=== PATIENT | female | born 1985 | race Caucasian/White ===

== ENCOUNTER 2018-11-13 09:27 | Inpatient (IN) | payer OTHER ==
[2018-11-13 10:23] LABS: Hematocrit 36 % (35-47); Hemoglobin 12.4 g/dl (12.0-16.0); Mean Corpuscular HGB Conc 35 g/dl (31-36); Mean Corpuscular Hemoglobin 33 pg (27-31); Mean Corpuscular Volume 94 fL (80-97); Mean Platelet Volume 8.3 fL (7.4-10.4); Platelet Count 292 10^3/ul (150-450); Red Cell Distribution Width 13 % (10.5-15); White Blood Count 10.9 10^3/ul (3.5-10.8)
[2018-11-13 10:28] LABS: Urine Appearance Cloudy; Urine Bacteria 1+ (Absent); Urine Bilirubin Negative (Negative); Urine Blood 1+ (Negative); Urine Color Yellow; Urine Glucose Negative (Negative); Urine Ketones Negative (Negative); Urine Nitrite Negative (Negative); Urine Protein Negative (Negative); Urine Red Blood Cell 1+(3-5/hpf) (Absent); Urine Specific Gravity 1.004 (1.010-1.030); Urine Squamous Epithelial Cell Present (Absent); Urine Urobilinogen Negative (Negative); Urine White Blood Cell Trace(0-5/hpf) (Absent)
[2018-11-13 10:45] LABS: ALT 12 U/L (7-52); AST 14 U/L (13-39); Albumin 3.6 g/dL (3.2-5.2); Albumin/Globulin Ratio 1.1 (1-3); Alkaline Phosphatase 99 U/L (34-104); Anion Gap 10 mmol/L (2-11); BUN/Creatinine Ratio 9.6 (8-20); Blood Urea Nitrogen 5 mg/dL (6-24); CO2 Carbon Dioxide 19 mmol/L (22-32); Calcium 9.4 mg/dL (8.6-10.3); Chloride 107 mmol/L (101-111); EGFR African American 163.3 (>60); Globulin 3.2 g/dL (2-4); Glucose 94 mg/dL (70-100); Potassium 3.4 mmol/L (3.5-5.0); Sodium 136 mmol/L (135-145); Total Protein 6.8 g/dL (6.4-8.9)
[2018-11-13] MEDS ORDERED: Azithromycin TAB* 250 MG PO ONE (11:00)
[2018-11-13] MEDS: Betamethasone INJ* 6 MG/ML 5 ML VIAL (30 MG) IM SCH (11:22)
[2018-11-13] MEDS: NS 0.9% IVPB SCH ×3 (11:32→23:02)
[2018-11-13] MEDS: AMPICILLIN IVPB SCH ×3 (11:32→23:02)
--- NOTE | 2018-11-13 17:20 | HP ---
General Information - Reason for Visit Pt presents from OB office at 30+1 with gross SROM this AM. Fluid clear, large amt, still having some leakage. Also has noticed some cramps, but nothing very painful or regular. has been uncomplicated other than diet controlled GDM and h/o myomectomy. Pt is planning primary C/S due to the myomectomy. - General Information Maternal Age: 33 Grav: 4 Para: 0 SAB: 0 IEA: 0 Estimated Due Date: 01/21/19 Gestational Age in Weeks/Days: 30+1 Maternal Blood Type and Rh: B Positive - Results this Serology/RPR Result: Non-Reactive Rubella Result: Immune HBsAg Result: Negative HIV Result: Negative Past Medical History Delivery History: See Records Pertinent Past Medical History: See Records Pertinent Past Surgical History: See Records - myomectomy, D&C - Antepartal Records Antepartal Records: Reviewed, Complicated by: - GDM, h/o myomectomy Review of Systems Constitutional: Comfortable CV Complaint: No Respiratory: Shortness of Breath: No Gastrointestinal: No Nausea/Vomiting Genitourinary: Leaking Fluid, No Dysuria, No Bleeding Musculoskeletal: Contractions - , mild cramps Movement: Normal Exam Allergies/Adverse Reactions: Allergies Latex, Natural Rubber Allergy (Mild, Verified 11/13/18 13:54) Itching can use latex gloves at work but is reactive after dental cleanings Lab Values - Entire Visit: Laboratory Tests 11/13/18 11/13/18 11/13/18 10:00 10:00 10:00 WBC 10.9 H RBC 3.80 L Hgb 12.4 Hct 36 MCV 94 MCH 33 H MCHC 35 RDW 13 Plt Count 292 MPV 8.3 Sodium 136 Potassium 3.4 L Chloride 107 Carbon Dioxide 19 L Anion Gap 10 BUN 5 L Creatinine 0.52 Est GFR ( Amer) 163.3 Est GFR (Non-Af Amer) 135.0 BUN/Creatinine Ratio 9.6 Glucose 94 Calcium 9.4 Total Bilirubin 0.30 AST 14 ALT 12 Alkaline Phosphatase 99 Total Protein 6.8 Albumin 3.6 Globulin 3.2 Albumin/Globulin Ratio 1.1 Urine Color Yellow Urine Appearance Cloudy Urine pH 6.0 Ur Specific [place] 1.004 L Urine Protein Negative Urine Ketones Negative Urine Blood 1+ A Urine Nitrate Negative Urine Bilirubin Negative Urine Urobilinogen Negative Ur Leukocyte Esterase Negative Urine WBC (Auto) Trace(0-5/hpf) Urine RBC (Auto) 1+(3-5/hpf) A Ur Squamous Epith Cells Present A Urine Bacteria 1+ A Urine Glucose Negative Vag Amniotic Fld Detect Positive Blood Type Antibody Screen 11/13/18 10:00 WBC RBC Hgb Hct MCV MCH MCHC RDW Plt Count MPV Sodium Potassium Chloride Carbon Dioxide Anion Gap BUN Creatinine Est GFR ( Amer) Est GFR (Non-Af Amer) BUN/Creatinine Ratio Glucose Calcium Total Bilirubin AST ALT Alkaline Phosphatase Total Protein Albumin Globulin Albumin/Globulin Ratio Urine Color Urine Appearance Urine pH Ur Specific [place] Urine Protein Urine Ketones Urine Blood Urine Nitrate Urine Bilirubin Urine Urobilinogen Ur Leukocyte Esterase Urine WBC (Auto) Urine RBC (Auto) Ur Squamous Epith Cells Urine Bacteria Urine Glucose Vag Amniotic Fld Detect Blood Type B Positive Antibody Screen Negative - Measurements Height: 5 ft 2 in Weight: 148 lb Weight in lbs: 148.170352 Body Mass Index (BMI): 27.1 - Exam Breast: Breast Exam Deferred Extremities: No Edema Heart: Normal Rhythm/Heart Sounds HEENT: No Significant Findings Lungs: Clear Bilaterally Rectal: Rectal Exam Deferred - Abdominal Exam Abdomen Exam: Non-Tender, Fundal Height Consistent with Dates - Ultrasound/Biophysical Profile Ultrasound Status: Radiology Department Full Exam - fetus 1810g, appropriate size, transverse presentation, anterior placenta, ERICH 8.5, cervix 2.8cm long with funneling Targeted Exam Findings Estimated Weight: approx 1800g Presenting Part: Transverse Membrane Status: Leaking Amniotic Fluid Evaluation: Gross Rupture, Positive ROM Plus EFM Findings - External Monitor Findings Baseline Heart Rate: 140 External Monitor Findings: Accelerations Present, No Pattern of Variable or Late Decelerations, Variability Moderate, Baseline Stable Contractions: Irregular, Mild - feel like mild cramps Assessment/Plan - Assessment 33yo at 30+1 wks EGA with gross SROM, very reassuring status and normal size today - Obstetrical Risk Factors Obstetrical Risk Factors: GBS Unknown - Plan Plan: Antibiotic Prophylaxis, Steroids Plan Comment: Admit to antepartum service. Betamethasone Q24 hrs x2. Ampicillin and azithromycin. Start Amoxicillin in 48 hours. Plan delivery by C/S due to h/o myomectomy at 34 weeks. Delivery sooner for indications, evidence of labor, or any concern for infection. Discussed at length, pt understands and agrees with plan. - Date/Time of Admission Date of Admission: 11/13/18 Time of Admission: 12:30
[2018-11-13] MEDS: Calcium Carbonate CHEW TAB* 500 MG (TUMS) PO PRN (23:03)
[2018-11-14] MEDS: NS 0.9% IVPB SCH ×4 (05:52→23:01)
[2018-11-14] MEDS: AMPICILLIN IVPB SCH ×4 (05:52→23:01)
--- NOTE | 2018-11-14 09:24 | PN ---
Medicine Progress Note - Date of Service Date of Service: 11/14/18 - Subjective Subjective: Patient is 30+ weeks admited with PPROM, complicated by GDMA1 and prior myomectomy. She was admitted yesterday, is on prophylactic antibiotics, steroid injection to promote lung maturity x 1, second dose pending. Patient is comfortable denies, fever/chills, abdominal pain/ contractions, vaginal bleeding and admits to movement. - Objective Objective: Vital Signs 11/14/18 08:06 Temperature 99.0 F Pulse Rate 116 Respiratory 17 Rate Blood Pressure 104/56 (mmHg) O2 Sat by Pulse 99 Oximetry Non-stress test this am is reactive cat 1 Current Medications Betamethasone Acet/Betameth SodPhos (Celestone*) 12 mg IM Q24H KELSI Stop: 11/14/18 11:01 Last Admin: 11/13/18 11:22 Dose: 12 dose Calcium Carbonate (Tums*) 500 mg PO Q6H PRN PRN Reason: HEARTBURN Last Admin: 11/13/18 23:03 Dose: 500 mg Ampicillin Sodium 2 gm/ Sodium (Chloride) 100 mls @ 200 mls/hr IVPB Q6H KELSI Stop: 11/15/18 05:29 Last Admin: 11/14/18 05:52 Dose: 200 mls/hr Intake & Output 11/12/18 11/13/18 11/14/18 11/15/18 06:59 06:59 06:59 06:59 Weight 148 lb Intake and Output Start: 11/13/18 09: 34 Freq: Status: Active Protocol: Created 11/13/18 09:34 System (Rec: 11/13/18 09:34 System [id number]) Last Finger Stick Glucose Documented by Nursin General:AAOx3 in no distress Lungs:CTA b/l Cardiovascular:RRR no abnormal sounds or rythm Abdomen:Gravid soft, not tender, palpable movement, normal bowel sounds Extremities: N/T b/l - Labs Labs: Laboratory Results - last 24 hr 11/13/18 11/13/18 11/13/18 10:00 10:00 10:00 WBC 10.9 H RBC 3.80 L Hgb 12.4 Hct 36 MCV 94 MCH 33 H MCHC 35 RDW 13 Plt Count 292 MPV 8.3 Sodium 136 Potassium 3.4 L Chloride 107 Carbon Dioxide 19 L Anion Gap 10 BUN 5 L Creatinine 0.52 Est GFR ( Amer) 163.3 Est GFR (Non-Af Amer) 135.0 BUN/Creatinine Ratio 9.6 Glucose 94 POC Glucose (mg/dL) Calcium 9.4 Total Bilirubin 0.30 AST 14 ALT 12 Alkaline Phosphatase 99 Total Protein 6.8 Albumin 3.6 Globulin 3.2 Albumin/Globulin Ratio 1.1 Urine Color Yellow Urine Appearance Cloudy Urine pH 6.0 Ur Specific [place] 1.004 L Urine Protein Negative Urine Ketones Negative Urine Blood 1+ A Urine Nitrate Negative Urine Bilirubin Negative Urine Urobilinogen Negative Ur Leukocyte Esterase Negative Urine WBC (Auto) Trace(0-5/hpf) Urine RBC (Auto) 1+(3-5/hpf) A Ur Squamous Epith Cells Present A Urine Bacteria 1+ A Urine Glucose Negative Vag Amniotic Fld Detect Positive Blood Type Antibody Screen 11/13/18 11/13/18 11/14/18 10:00 21:09 06:02 WBC RBC Hgb Hct MCV MCH MCHC RDW Plt Count MPV Sodium Potassium Chloride Carbon Dioxide Anion Gap BUN Creatinine Est GFR ( Amer) Est GFR (Non-Af Amer) BUN/Creatinine Ratio Glucose POC Glucose (mg/dL) 110 H 98 Calcium Total Bilirubin AST ALT Alkaline Phosphatase Total Protein Albumin Globulin Albumin/Globulin Ratio Urine Color Urine Appearance Urine pH Ur Specific [place] Urine Protein Urine Ketones Urine Blood Urine Nitrate Urine Bilirubin Urine Urobilinogen Ur Leukocyte Esterase Urine WBC (Auto) Urine RBC (Auto) Ur Squamous Epith Cells Urine Bacteria Urine Glucose Vag Amniotic Fld Detect Blood Type B Positive Antibody Screen Negative Microbiology 11/13/18 10:00 Urine Urine Culture - Final No Growth (<1,000 CFU/mL) - Assessment Assessment: HECTOR SANDERS is a 33 year old F. Patient's diagnosis is . - Plan Plan: Plan. Continue current care, monitoring for s/sx of pre-term labor or chorioamnionitis, monitoring with nonstress tests, Nutrition consult pending for appropriate diet and nutritional needs.
[2018-11-14] MEDS: Betamethasone INJ* 6 MG/ML 5 ML VIAL (30 MG) IM SCH (11:00)
[2018-11-14] MEDS: Calcium Carbonate CHEW TAB* 500 MG (TUMS) PO PRN (15:00)
[2018-11-15] MEDS: NS 0.9% IVPB SCH (05:05)
[2018-11-15] MEDS: AMPICILLIN IVPB SCH (05:05)
--- NOTE | 2018-11-15 11:11 | PN ---
Progress Note - Progress Note Date of Service: 11/15/18 Note: s: Leaking lots of clear fluid today but no vaginal bleeding. +FM. Feeling well in general. VSS. FS mostly normal, just a few elevated yesterday (on steroids). NST: Appropriate for GA Exam: Gen: NAD, sitting up in bed Abd: soft, NT, gravid Ext: NT, no edema A: Pt is a @ 30.3wks with PPROM. status reassuring. No s/s of labor. S/p betamethasone and IV abx x48hrs. Prior myomectomy. A1GDM P: Switched to Amoxicillin 875 po BID Had nutrition consult, monitoring fs QID, consistent carb diet, encourage ambulation Will plan for PCS @34wks due to h/o myomectomy (or if s/s of labor)
[2018-11-15] MEDS ORDERED: Amoxicillin/Clavulanate TAB* 875 MG PO SCH (12:00)
[2018-11-15] MEDS: Amoxicillin/Clavulanate TAB* 875 MG PO SCH (20:39)
[2018-11-15] MEDS ORDERED: Magnesium CITRATE* 300 ML BTL PO PRN (21:00)
[2018-11-16] MEDS: Amoxicillin/Clavulanate TAB* 875 MG PO SCH (09:36)
--- NOTE | 2018-11-16 09:52 | PN ---
Progress Note - Progress Note Date of Service: 11/16/18 SOAP: Subjective: Pt without complaint today other than some persistent heartburn despite TUMs. Has not tried zantac or similar. Active FMs, no VB, slow leaking, no abd pain or F/C. Objective: VS normal, afebrile BGs almost all normal, aristides over past 24 hrs (since stopping steroids) Abd soft, nontender, gravid NST reactive, no decels, mod melissa. [place]: occ rare ctx Assessment: 30+4 wks with PPROM, no e/o infection or labor. Reassuring status. Incr heartburn. Amoxicillin day #2 of 5 Plan: Continue supportive care, BID NST. Plan delivery by C/S at 34 wks, sooner if e/o infection/labor/NRFHT. Pepcid BID rx
[2018-11-16] MEDS: Famotidine TAB* 20 MG PO SCH ×2 (10:44→21:01)
[2018-11-16] MEDS: Amoxicillin PO (*) 875 MG TAB PO SCH (20:59)
[2018-11-17] MEDS: Famotidine TAB* 20 MG PO SCH ×2 (09:03→21:31)
[2018-11-17] MEDS: Amoxicillin PO (*) 875 MG TAB PO SCH ×2 (09:03→21:31)
--- NOTE | 2018-11-17 15:54 | PN ---
Progress Note - Progress Note Date of Service: 11/17/18 Note: pt with pprom at 30 + weeks feels well today. bpp at bedside shows + fbm, + tone, + gross movements, decreased fluid. reactive nst 8/10 bpp reassuring testing . questions answered Burton Dillon MD
[2018-11-18] MEDS: Amoxicillin PO (*) 875 MG TAB PO SCH ×2 (09:05→21:27)
[2018-11-18] MEDS: Famotidine TAB* 20 MG PO SCH ×2 (09:05→21:28)
--- NOTE | 2018-11-18 21:27 | PN ---
Progress Note - Progress Note Date of Service: 11/18/18 Note: Date of Service: 11/18/18 SOAP: Subjective: Pt without complaint today. Active FMs, no VB, continued slow leaking, no abd pain or F/C. Objective: VS normal, afebrile BGs all normal Abd soft, nontender, gravid NST reactive, no decels, mod melissa. [place]: occ rare ctx Assessment: 30+6 wks with PPROM, no e/o infection or labor. Reassuring status. Incr heartburn. Amoxicillin day #4 of 5 Plan: Continue supportive care, BID NST. Plan delivery by C/S at 34 wks, sooner if e/o infection/labor/NRFHT.
[2018-11-19] MEDS: Amoxicillin PO (*) 875 MG TAB PO SCH ×2 (09:07→21:36)
[2018-11-19] MEDS: Famotidine TAB* 20 MG PO SCH ×2 (09:07→21:36)
--- NOTE | 2018-11-19 15:45 | PN ---
Progress Note - Progress Note Date of Service: 11/19/18 Note: SOAP: Subjective: Pt without complaints today. Active FMs, no VB, continued slow leaking, no abd pain or F/C. Pt in good spirits. Objective: VS normal, afebrile BGs all normal on regular diet Abd soft, nontender, gravid NST reactive, no decels, mod melissa. [place]: no ctx Assessment: 31+0 wks with PPROM, no e/o infection or labor. Very reassuring status. Amoxicillin day #5 of 5, d/c tonight Plan: Continue supportive care, BID NST. Plan delivery by C/S at 34 wks, sooner if e/o infection/labor/NRFHT.
--- NOTE | 2018-11-20 10:00 | PN ---
Progress Note - Progress Note Date of Service: 11/20/18 SOAP: Subjective: [Pt doing ok] Objective: [VSS Afeb] Uterus: NT/ no contractions Ext : NT NST : + accels/ neg decel/ moderate variability / no contractions Assessment: [Pt 33 31 weeks with PProm/ pt is s/p full course of abx and steroids ] Plan: [] Plan on recheck BPP. Plan on induction at 34 weeks or sooner if indicated.
[2018-11-20] MEDS: Famotidine TAB* 20 MG PO SCH (21:00)
[2018-11-21] MEDS: Famotidine TAB* 20 MG PO SCH ×2 (09:27→21:13)
--- NOTE | 2018-11-21 11:49 | PN ---
Progress Note - Progress Note Date of Service: 11/21/18 SOAP: Subjective: [Patient denies abdominal pain, contractions, admits to movement. Denies vaginal bleeding.] Objective: [ Vital Signs Temp Pulse Resp BP Pulse Ox 98.2 F 99 18 130/76 98 11/21/18 09:28 11/21/18 10:35 11/21/18 10:35 11/21/18 10:35 11/17/18 09:01 Laboratory Results - last 24 hr 11/20/18 11/20/18 11/21/18 14:25 20:59 06:26 POC Glucose (mg/dL) 84 95 64 L 11/21/18 10:33 POC Glucose (mg/dL) 68 L Lungs CTA b/l CV RRR Abdomen soft, not tender, not distended, normal bowel sounds, palpable movement.] Assessment: [Patient with PPROM at 31weeks, s/p antibiotic prophylaxis, steroids, GBS negative, Urine culture negative. also complicvated by Gestational diabetes A1 and prior Uterine Myomectomy precluding induction of labor.] Plan: [1. PPROM monitor for s/sx of chorioamnionitis or pre-term labor. Check daily NST, CBC, blood type/screen and regular vital signs. 2. Gestational diabetes well controlled with diet. 3. Plan delivery at 34 weeks EGA, Section to be done 12/12/18 as discussed with patient unless patient develops chorio or pre term labor.]
[2018-11-21 12:20] LABS: Hematocrit 35 % (35-47); Hemoglobin 12.1 g/dl (12.0-16.0); Mean Corpuscular HGB Conc 35 g/dl (31-36); Mean Corpuscular Hemoglobin 33 pg (27-31); Mean Corpuscular Volume 95 fL (80-97); Mean Platelet Volume 8.4 fL (7.4-10.4); Platelet Count 307 10^3/ul (150-450); Red Blood Count 3.66 10^6/ul (4.00-5.40); Red Cell Distribution Width 13 % (10.5-15); White Blood Count 12.2 10^3/ul (3.5-10.8)
[2018-11-21 13:01] LABS: ABS Basophils 0 10^3/ul (0-0.2); ABS Eosinophils 0.1 10^3/ul (0-0.6); ABS Lymphocytes 1.6 10^3/ul (1.0-4.8); ABS Monocytes 0.9 10^3/ul (0-0.8); ABS Neutrophils 9.5 10^3/ul (1.5-7.7)
[2018-11-21 13:10] LABS: Immature Granulocytes 5 % (0-9); Lymphocytes % 12 %; Metamyelocytes % 1 % (0-2); Monocytes % 11 %; Myelocytes % 4 % (0-1); Neutrophil % 70 %
[2018-11-21 13:22] LABS: ABS Neutrophils 9.2 10^3/ul (1.5-7.7)
[2018-11-21 13:24] LABS: ABS Eosinophils 0.2 10^3/ul (0-0.6)
--- NOTE | 2018-11-22 07:35 | PN ---
Progress Note - Progress Note Date of Service: 11/22/18 SOAP: Subjective: []pt sans complaints. gfm Objective: []vss afebrile abdomen soft nontender ext notender glucose 71 fasting nst reactive Assessment: []31 week 4 days pprom Plan: []continue observation
[2018-11-22] MEDS: Famotidine TAB* 20 MG PO SCH ×2 (09:00→20:50)
[2018-11-23] MEDS: Famotidine TAB* 20 MG PO SCH ×2 (08:55→20:03)
--- NOTE | 2018-11-23 16:33 | PN ---
Progress Note - Progress Note Date of Service: 11/23/18 Note: SOAP: Subjective: Pt without complaints today, still doing well. Active FMs, no VB, continued slow leaking, no abd pain or F/C. Objective: VS normal, afebrile BGs all normal on regular diet Abd soft, nontender, gravid NST this AM reactive, no decels, mod melissa. [place]: no ctx Bedside BPP: Transverse presentation Fluid 5x2cm pocket, +movement, +tone, only a few seconds of breathing observed. Assessment: 31+4 wks with PPROM, no e/o infection or labor. Reassuring status. BPP on Tuesday read as 6/8 although technically 4/8 with low fluid and absent breathing. Today, fluid is technically adequate, and breathing not seen for a full 30 seconds. With pt feeling active FMs and reactive NST, I think it is reasonable to repeat BPP again tomorrow. Plan: Continue supportive care, BID NST. BPP tomorrow. Plan delivery by C/S at 34 wks, sooner if e/o infection/labor/NRFHT. Scheduled for 12/12. We discussed that pt can probably be permitted to walk on the premises if she is accompanied by an available [facility] [place] employee on Tuesday when the weather is expected to be warmer.
[2018-11-24] MEDS: Famotidine TAB* 20 MG PO SCH ×2 (09:05→21:14)
[2018-11-24 12:48] LABS: Hematocrit 33 % (35-47); Hemoglobin 11.5 g/dl (12.0-16.0); Mean Corpuscular HGB Conc 35 g/dl (31-36); Mean Corpuscular Hemoglobin 33 pg (27-31); Mean Corpuscular Volume 95 fL (80-97); Mean Platelet Volume 8.5 fL (7.4-10.4); Platelet Count 288 10^3/ul (150-450); Red Blood Count 3.45 10^6/ul (4.00-5.40); Red Cell Distribution Width 13 % (10.5-15); White Blood Count 11.1 10^3/ul (3.5-10.8)
[2018-11-24 13:30] LABS: Immature Granulocytes 2 % (0-9); Lymphocytes % 16 %; Metamyelocytes % 1 % (0-2); Monocytes % 9 %; Myelocytes % 1 % (0-1); Neutrophil % 72 %
[2018-11-24 13:34] LABS: ABS Basophils 0.11 10^3/ul (0-0.2); ABS Neutrophils 8.2 10^3/ul (1.5-7.7)
--- NOTE | 2018-11-24 14:57 | PN ---
Progress Note - Progress Note Date of Service: 11/24/18 Note: S: Pt doing well though had some increased cramping and back discomfort this am. It improved some s/p a warm shower but her back is still achy. No bleeding. Still leaking some clear fluid. Good FM. AVSS FS: All wnl NST: 145bpm, reactive [place]: no ctxs Abd: soft, gravid, NT Ext: no edema Bedside sono: 3.5x4cm fluid pocket, + movement and 30 sec of breathing. Transverse presentation. BPP 06/28 Assessment: @31.5wks GA with PPROM s/p abx ppx and steroids. No e/o infection or labor. status reassuring. A1GDM Plan: Continue to monitor FS, NST. CS at 34wks or if labor or s/s of infxn
[2018-11-25] MEDS: Famotidine TAB* 20 MG PO SCH ×2 (08:11→20:38)
--- NOTE | 2018-11-25 11:40 | PN ---
Progress Note - Progress Note Date of Service: 11/25/18 Note: 33 yo at 31 weeks with pprom nst reactive afebile bpp was normal yesterday glucose in good control continue observation
--- NOTE | 2018-11-26 06:52 | PN ---
Progress Note - Progress Note Date of Service: 11/26/18 SOAP: Subjective: [pt sans complaints . continues to leak some Objective: [vss afebrile abdomen soft nontender] nst reactive Assessment: [32 weeks 0 days pprom] Plan: [continue observation]
[2018-11-26] MEDS: Famotidine TAB* 20 MG PO SCH ×2 (08:39→21:01)
[2018-11-26 18:02] LABS: Hematocrit 34 % (35-47); Hemoglobin 11.8 g/dl (12.0-16.0); Mean Corpuscular HGB Conc 35 g/dl (31-36); Mean Corpuscular Hemoglobin 33 pg (27-31); Mean Corpuscular Volume 95 fL (80-97); Mean Platelet Volume 8.2 fL (7.4-10.4); Platelet Count 281 10^3/ul (150-450); Red Blood Count 3.59 10^6/ul (4.00-5.40); Red Cell Distribution Width 13 % (10.5-15); White Blood Count 11.5 10^3/ul (3.5-10.8)
[2018-11-26 18:17] LABS: Urine Appearance Cloudy; Urine Bilirubin Negative (Negative); Urine Blood Negative (Negative); Urine Color Yellow; Urine Glucose Negative (Negative); Urine Ketones Trace (Negative); Urine Nitrite Negative (Negative); Urine Protein Negative (Negative); Urine Specific Gravity 1.014 (1.010-1.030); Urine Urobilinogen Negative (Negative)
[2018-11-26 18:39] LABS: ABS Basophils 0.1 10^3/ul (0-0.2); ABS Eosinophils 0.1 10^3/ul (0-0.6); ABS Lymphocytes 1.6 10^3/ul (1.0-4.8); ABS Monocytes 1.2 10^3/ul (0-0.8); ABS Neutrophils 8.5 10^3/ul (1.5-7.7); ABS Nucleated RBC 0 10^3/ul; Eosinophil % 1.2 %; Nucleated Red Blood Cells % 0
[2018-11-27] MEDS: Famotidine TAB* 20 MG PO SCH (08:26)
--- NOTE | 2018-11-27 16:44 | PN ---
Progress Note - Progress Note Date of Service: 11/27/18 SOAP: Subjective: [Pt doing ok/ would like to go outside] Objective: [VSS afeb] Uterus : NT, no contractions BPP: 6/8 Reactive NST FHT 140 reactive NST/ no contractions/ mod variability Assessment: [Pt 33 yo at 32 1/7 weeks with pprom] Plan: [Pt with decrease in ERICH/ will recheck in 24 to 48 hours. Pt doing well overall with plans of delivery at 34 weeks with primary delivery given prior myomectomy.]
[2018-11-28] MEDS: Famotidine TAB* 20 MG PO SCH ×3 (07:08→20:30)
--- NOTE | 2018-11-28 08:11 | PN ---
Progress Note - Progress Note Date of Service: 11/28/18 SOAP: Subjective: [ at 32 2/7 weeks EGA with PPROM admitted on 11/13/18. Patient is comfortable has no complaints, denies vaginal bleeding, fever, chills, malaise, abdominal pain or contractions. She admits to movement.] Objective: [ Laboratory Last Values WBC 11.5 10^3/ul (3.5-10.8) H 11/26/18 17:55 RBC 3.59 10^6/ul (4.00-5.40) L 11/26/18 17:55 Hgb 11.8 g/dl (12.0-16.0) L 11/26/18 17:55 Hct 34 % (35-47) L 11/26/18 17:55 MCV 95 fL (80-97) 11/26/18 17:55 MCH 33 pg (27-31) H 11/26/18 17:55 MCHC 35 g/dl (31-36) 11/26/18 17:55 RDW 13 % (10.5-15) 11/26/18 17:55 Plt Count 281 10^3/ul (150-450) 11/26/18 17:55 MPV 8.2 fL (7.4-10.4) 11/26/18 17:55 Neut % (Auto) 73.3 % 11/26/18 17:55 Lymph % (Auto) 14.0 % 11/26/18 17:55 [place] % (Auto) 10.7 % 11/26/18 17:55 Eos % (Auto) 1.2 % 11/26/18 17:55 Baso % (Auto) 0.8 % 11/26/18 17:55 Absolute Neuts (auto) 8.5 10^3/ul (1.5-7.7) H 11/26/18 17:55 Absolute Lymphs (auto) 1.6 10^3/ul (1.0-4.8) 11/26/18 17:55 Absolute Monos (auto) 1.2 10^3/ul (0-0.8) H 11/26/18 17:55 Absolute Eos (auto) 0.1 10^3/ul (0-0.6) 11/26/18 17:55 Absolute Basos (auto) 0.1 10^3/ul (0-0.2) 11/26/18 17:55 Absolute Nucleated RBC 0 10^3/ul 11/26/18 17:55 Immature Gran % 2 % (0-9) 11/24/18 12:21 Neutrophils % 72 % 11/24/18 12:21 Lymphocytes % 16 % 11/24/18 12:21 Monocytes % 9 % 11/24/18 12:21 Eosinophils % 2 % 11/21/18 11:46 Basophils % 1 % 11/24/18 12:21 Metamyelocytes % 1 % (0-2) 11/24/18 12:21 Myelocytes % 1 % (0-1) 11/24/18 12:21 Nucleated RBC % 0 11/26/18 17:55 Abs Neuts (Manual) 8.2 10^3/ul (1.5-7.7) H 11/24/18 12:21 Abs Lymphs (Manual) 1.78 10^3/ul (1.0-4.8) 11/24/18 12:21 Abs Monocytes (Manual) 0.99 10^3/ul (0-0.8) H 11/24/18 12:21 Absolute Eos (Manual) 0.2 10^3/ul (0-0.6) 11/21/18 11:46 Abs Basophils (Manual) 0.11 10^3/ul (0-0.2) 11/24/18 12:21 Normal RBC Morphology Normal (Normal) 11/24/18 12:21 Sodium 136 mmol/L (135-145) 11/13/18 10:00 Potassium 3.4 mmol/L (3.5-5.0) L 11/13/18 10:00 Chloride 107 mmol/L (101-111) 11/13/18 10:00 Carbon Dioxide 19 mmol/L (22-32) L 11/13/18 10:00 Anion Gap 10 mmol/L (2-11) 11/13/18 10:00 BUN 5 mg/dL (6-24) L 11/13/18 10:00 Creatinine 0.52 mg/dL (0.51-0.95) 11/13/18 10:00 Est GFR ( Amer) 163.3 (>60) 11/13/18 10:00 Est GFR (Non-Af Amer) 135.0 (>60) 11/13/18 10:00 BUN/Creatinine Ratio 9.6 (8-20) 11/13/18 10:00 Glucose 94 mg/dL (70-100) 11/13/18 10:00 POC Glucose (mg/dL) 56 mg/dL (70-100) L 11/28/18 06:32 Calcium 9.4 mg/dL (8.6-10.3) 11/13/18 10:00 Total Bilirubin 0.30 mg/dL (0.2-1.0) 11/13/18 10:00 AST 14 U/L (13-39) 11/13/18 10:00 ALT 12 U/L (7-52) 11/13/18 10:00 Alkaline Phosphatase 99 U/L (34-104) 11/13/18 10:00 Total Protein 6.8 g/dL (6.4-8.9) 11/13/18 10:00 Albumin 3.6 g/dL (3.2-5.2) 11/13/18 10:00 Globulin 3.2 g/dL (2-4) 11/13/18 10:00 Albumin/Globulin Ratio 1.1 (1-3) 11/13/18 10:00 Urine Color Yellow 11/26/18 18:06 Urine Appearance Cloudy 11/26/18 18:06 Urine pH 6.0 (5-9) 11/26/18 18:06 Ur Specific [place] 1.014 (1.010-1.030) 11/26/18 18:06 Urine Protein Negative (Negative) 11/26/18 18:06 Urine Ketones Trace (Negative) A 11/26/18 18:06 Urine Blood Negative (Negative) 11/26/18 18:06 Urine Nitrate Negative (Negative) 11/26/18 18:06 Urine Bilirubin Negative (Negative) 11/26/18 18:06 Urine Urobilinogen Negative (Negative) 11/26/18 18:06 Ur Leukocyte Esterase Negative (Negative) 11/26/18 18:06 Urine WBC (Auto) Trace(0-5/hpf) (Absent) 11/13/18 10:00 Urine RBC (Auto) 1+(3-5/hpf) (Absent) A 11/13/18 10:00 Ur Squamous Epith Cells Present (Absent) A 11/13/18 10:00 Urine Bacteria 1+ (Absent) A 11/13/18 10:00 Urine Glucose Negative (Negative) 11/26/18 18:06 Vag Amniotic Fld Detect Positive 11/13/18 10:00 Blood Type B Positive 11/24/18 12:21 Antibody Screen Negative 11/24/18 12:21 Vital Signs 11/27/18 11/27/18 11/27/18 08:27 08:30 13:39 Temperature 98.3 F 98.0 F Pulse Rate 107 99 Respiratory 18 18 18 Rate Blood Pressure 123/75 123/63 (mmHg) 11/27/18 11/27/18 11/28/18 16:25 20:50 06:40 Temperature 98.3 F 98.8 F Pulse Rate 91 100 Respiratory 18 18 17 Rate Blood Pressure 131/80 138/81 (mmHg) Non stress test this am is Reactive cat 1, Biophysical profile yesterday 04/28 including NST with expected oligohydramnios.] Lungs CTA b/l, no CVA tenderness bilaterally. CV RRR Abdomen Soft, NT, ND, NABS and palpable featl movement. Assessment: [ at 32+ weeks EGA, PPROM stable with good reassuring monitoring , no obvious signs/symptoms on physical exam, labs, monitoring of PTL or infection.] Plan: [Continue current care with expectant management, patient to undergo Delivery by C/S on 11/14/18 unless she develops s/sx of infection, nonreassuring monitoring or goes into pre-term labor.]
[2018-11-29] MEDS: Famotidine TAB* 20 MG PO SCH ×2 (11:51→20:35)
[2018-11-29 12:09] LABS: Hematocrit 35 % (35-47); Hemoglobin 12.3 g/dl (12.0-16.0); Mean Corpuscular HGB Conc 35 g/dl (31-36); Mean Corpuscular Hemoglobin 33 pg (27-31); Mean Corpuscular Volume 95 fL (80-97); Mean Platelet Volume 8.4 fL (7.4-10.4); Platelet Count 275 10^3/ul (150-450); Red Blood Count 3.73 10^6/ul (4.00-5.40); Red Cell Distribution Width 13 % (10.5-15); White Blood Count 9.4 10^3/ul (3.5-10.8)
[2018-11-29 12:46] LABS: ABS Basophils 0 10^3/ul (0-0.2); ABS Eosinophils 0.1 10^3/ul (0-0.6); ABS Lymphocytes 1.2 10^3/ul (1.0-4.8); ABS Nucleated RBC 0 10^3/ul; Eosinophil % 1.4 %; Lymphocyte % 12.7 %; Nucleated Red Blood Cells % 0
--- NOTE | 2018-11-29 15:15 | PN ---
Progress Note - Progress Note Date of Service: 11/29/18 SOAP: Subjective: [pt feels well , gfm] Objective: [vss afebrile . 2hr post prandial sugars normal bpp todaY SHOWS REACTIVE NST +2 + FBM+2 +GROSS MOVEMENT+2 +TONE + 2 [place] 6 CM =+0] BPP 04/28 Assessment: [REASSURING TESTING] Plan: []CONTINUE OBSERVATION
--- NOTE | 2018-11-30 09:48 | PN ---
Progress Note - Progress Note Date of Service: 11/30/18 SOAP: Subjective: [pt sans complaint] Objective: [vss afebrile abdomen soft nontender extremities nontender nst reactive ] Assessment: [32 +2 week pprom] Plan: [stable]
[2018-11-30] MEDS: Famotidine TAB* 20 MG PO SCH ×2 (11:31→19:49)
[2018-12-01] MEDS: Famotidine TAB* 20 MG PO SCH ×2 (09:24→20:20)
--- NOTE | 2018-12-01 15:38 | PN ---
Progress Note - Progress Note Date of Service: 12/01/18 Note: SOAP: Subjective: 32+5 wks Pt without complaints today, still doing well. Active FMs, no VB, continued slow leaking, no abd pain or F/C. Objective: VS normal, afebrile BGs all normal on regular diet Abd soft, nontender, gravid NST this AM reactive, no decels, mod melissa. [place]: no ctx Assessment: 32+5 wks with PPROM, no e/o infection or labor. Reassuring status. Plan: Continue supportive care, BID NST. BPP twice weekly. Last done on Tue. Plan delivery by C/S at 34 wks, sooner if e/o infection/labor/NRFHT. Scheduled for 12/12.
[2018-12-02] MEDS: Famotidine TAB* 20 MG PO SCH ×2 (10:01→20:33)
--- NOTE | 2018-12-02 12:18 | PN ---
Progress Note - Progress Note Date of Service: 12/02/18 Note: SOAP: Subjective: 32+6 wks Pt without complaints today, still doing well. Active FMs, no VB, continued slow leaking, no abd pain or F/C. Objective: VS normal, afebrile BGs all normal on regular diet Abd soft, nontender, gravid NST this AM reactive, no decels, mod melissa. [place]: no ctx BPP at bedside: 8/10 (-2 for fluid) One pocket of fluid 1.8 x 3.7 cm. Assessment: 32+6 wks with PPROM, no e/o infection or labor. Very reassuring status today. Plan: Continue supportive care, BID NST. BPP twice weekly. Plan delivery by C/S at 34 wks, sooner if e/o infection/labor/NRFHT. Scheduled for 12/12.
[2018-12-02] MEDS: Acetaminophen TAB* 325 MG PO PRN (22:28)
[2018-12-03] MEDS: Famotidine TAB* 20 MG PO SCH ×2 (09:35→20:29)
[2018-12-03 11:05] LABS: Hematocrit 34 % (33-41); Hemoglobin 11.7 g/dL (12.0-16.0); Mean Corpuscular HGB Conc 34 g/dL (31-36); Mean Corpuscular Hemoglobin 33 pg (27-31); Mean Corpuscular Volume 95 fL (80-97); Mean Platelet Volume 8.5 fL (7.4-10.4); Platelet Count 231 10^3/uL (150-450); Red Blood Count 3.57 10^6 /uL (3.70-4.87); Red Cell Distribution Width 13 % (10.5-15); White Blood Count 9.3 10^3/uL (3.5-10.8)
--- NOTE | 2018-12-03 11:25 | PN ---
Progress Note - Progress Note Date of Service: 12/03/18 SOAP: Subjective: [Pt feeling good/ no complaints] Objective: [VSS AFEB Uterus : NT no contractions] abdomen: soft NT /gravid Ext : nt no edema Assessment: [Pt 33 yo with p PROM / A1DM at 33 0/7 weeks] Plan: [PT doing great and plan is for delivery with section in the 34 week secondary to prior uterine surgery. CBC today is stable. Delivery would occur sooner if or maternal indication. Laboratory Results - last 24 hr 12/02/18 12/02/18 12/03/18 14:34 20:37 06:40 WBC RBC Hgb Hct MCV MCH MCHC RDW Plt Count MPV POC Glucose (mg/dL) 103 H 70 56 L 12/03/18 10:41 WBC 9.3 RBC 3.57 L Hgb 11.7 L Hct 34 MCV 95 MCH 33 H MCHC 34 RDW 13 Plt Count 231 MPV 8.5 POC Glucose (mg/dL)
[2018-12-03 11:30] LABS: ABS Basophils 0.1 10^3/ul (0-0.2); ABS Eosinophils 0.1 10^3/ul (0-0.6); ABS Lymphocytes 1.2 10^3/ul (1.0-4.8); ABS Monocytes 0.8 10^3/ul (0-0.8); ABS Neutrophils 7.1 10^3/ul (1.5-7.7); ABS Nucleated RBC 0 10^3/ul; Eosinophil % 1.2 %; Lymphocyte % 13.2 %; Nucleated Red Blood Cells % 0
--- NOTE | 2018-12-04 12:16 | PN ---
Progress Note - Progress Note Date of Service: 12/04/18 SOAP: Subjective: [Pt doing ok ] Objective: [VSS afeb] Uterus: Non tender no contractions palpated Ext nontender NST : baseline 140/ + accels/ neg decels/ no contractions Assessment: [Pt 33 yo 33 17 weeks/ with prom] Plan: [Anticipate operative delivery at 34 + weeks.
[2018-12-04] MEDS: Acetaminophen TAB* 325 MG PO PRN ×2 (16:36→20:39)
[2018-12-04] MEDS: Famotidine TAB* 20 MG PO SCH (20:40)
[2018-12-05] MEDS: Famotidine TAB* 20 MG PO SCH ×3 (07:39→20:44)
--- NOTE | 2018-12-05 10:49 | PN ---
Progress Note - Progress Note Date of Service: 12/05/18 SOAP: Subjective: [Patient is comfortable, denies abdominal pain/contractions, fever/chills or vaginal bleeding. Admits to active movement.] Objective: [ Laboratory Results - last 24 hr 12/04/18 12/04/18 12/04/18 10:44 14:35 20:36 POC Glucose (mg/dL) 57 L 79 79 12/05/18 06:40 POC Glucose (mg/dL) 59 L WBC 11/13/18 11/21/18 11/24/18 10:00 11:46 12:21 WBC 10.9 10^3/ul H 10^3/ul 12.2 10^3/ul H 10^3/ul 11.1 10^3/ul H 10^3/ul (3.5-10.8) (3.5-10.8) (3.5-10.8) 11/26/18 11/29/18 12/03/18 17:55 11:50 10:41 WBC 11.5 10^3/ul H 10^3/ul 9.4 10^3/ul 10^3/ul 9.3 10^3/uL 10^3/uL (3.5-10.8) (3.5-10.8) (3.5-10.8) Vital Signs Temp Pulse Resp BP Pulse Ox 98.1 F 114 18 136/87 97 12/05/18 10:30 12/05/18 10:30 12/05/18 10:30 12/05/18 10:30 12/05/18 06:43 Non-stress test this am Reactive. Abdomen soft, not tender, gravid with palpable movement.] Assessment: [ wit PPROM no s/sx of infection or labor and reassuring monitoring.] Plan: [Continue current care and monitoring.]
[2018-12-06] MEDS: Famotidine TAB* 20 MG PO SCH (08:43)
--- NOTE | 2018-12-06 13:10 | PN ---
Progress Note - Progress Note Date of Service: 12/06/18 SOAP: Subjective: [Pt doing ok] Objective: [VSS afeb uterus: non tender/ no contractions ext : non tender NST: 140 + accels/ - decels/ moderate variability/ no contractions] Assessment: [Pt 33 yo with p PROM/ 33 3/7 weeks. ] Plan: [Pt to have primary section at 34 + weeks unless maternal or indication.]
[2018-12-07] MEDS: Famotidine TAB* 20 MG PO SCH ×2 (08:40→20:34)
--- NOTE | 2018-12-07 14:16 | PN ---
Progress Note - Progress Note Date of Service: 12/07/18 Note: SOAP: Subjective: 33+4 wks Pt without complaints today, still doing well. Active FMs, no VB, continued leaking, no abd pain or F/C. Objective: VS normal, afebrile BGs all normal on regular diet Abd soft, nontender, gravid NST this AM reactive, no decels, mod melissa. Snowslip: no ctx Assessment: 33+4 wks with PPROM, no e/o infection or labor. Very reassuring status today. Plan: Continue supportive care, BID NST. Plan delivery by C/S at 34 wks, sooner if e/o infection/labor/NRFHT. Pt is requesting 34+0 which is this Tuesday.
[2018-12-08] MEDS: Famotidine TAB* 20 MG PO SCH ×3 (08:10→20:45)
--- NOTE | 2018-12-08 11:20 | PN ---
Progress Note - Progress Note Date of Service: 12/08/18 SOAP: Subjective: [Patient is comfortable, denies abdominal pain/contractions, vaginal bleeding, fever or chills.] Objective: [ Vital Signs Temp Pulse Resp BP Pulse Ox 98.2 F 102 18 126/82 97 12/08/18 10:38 12/08/18 10:38 12/08/18 10:38 12/08/18 10:38 12/05/18 06:43 Laboratory Last Values WBC 9.3 10^3/uL (3.5-10.8) 12/03/18 10:41 RBC 3.57 10^6 /uL (3.70-4.87) L 12/03/18 10:41 Hgb 11.7 g/dL (12.0-16.0) L 12/03/18 10:41 Hct 34 % (33-41) 12/03/18 10:41 MCV 95 fL (80-97) 12/03/18 10:41 MCH 33 pg (27-31) H 12/03/18 10:41 MCHC 34 g/dL (31-36) 12/03/18 10:41 RDW 13 % (10.5-15) 12/03/18 10:41 Plt Count 231 10^3/uL (150-450) 12/03/18 10:41 MPV 8.5 fL (7.4-10.4) 12/03/18 10:41 Neut % (Auto) 76.5 % 12/03/18 10:41 Lymph % (Auto) 13.2 % 12/03/18 10:41 [place] % (Auto) 8.4 % 12/03/18 10:41 Eos % (Auto) 1.2 % 12/03/18 10:41 Baso % (Auto) 0.7 % 12/03/18 10:41 Absolute Neuts (auto) 7.1 10^3/ul (1.5-7.7) 12/03/18 10:41 Absolute Lymphs (auto) 1.2 10^3/ul (1.0-4.8) 12/03/18 10:41 Absolute Monos (auto) 0.8 10^3/ul (0-0.8) 12/03/18 10:41 Absolute Eos (auto) 0.1 10^3/ul (0-0.6) 12/03/18 10:41 Absolute Basos (auto) 0.1 10^3/ul (0-0.2) 12/03/18 10:41 Absolute Nucleated RBC 0 10^3/ul 12/03/18 10:41 Immature Gran % 2 % (0-9) 11/24/18 12:21 Neutrophils % 72 % 11/24/18 12:21 Lymphocytes % 16 % 11/24/18 12:21 Monocytes % 9 % 11/24/18 12:21 Eosinophils % 2 % 11/21/18 11:46 Basophils % 1 % 11/24/18 12:21 Metamyelocytes % 1 % (0-2) 11/24/18 12:21 Myelocytes % 1 % (0-1) 11/24/18 12:21 Nucleated RBC % 0 12/03/18 10:41 Abs Neuts (Manual) 8.2 10^3/ul (1.5-7.7) H 11/24/18 12:21 Abs Lymphs (Manual) 1.78 10^3/ul (1.0-4.8) 11/24/18 12:21 Abs Monocytes (Manual) 0.99 10^3/ul (0-0.8) H 11/24/18 12:21 Absolute Eos (Manual) 0.2 10^3/ul (0-0.6) 11/21/18 11:46 Abs Basophils (Manual) 0.11 10^3/ul (0-0.2) 11/24/18 12:21 Normal RBC Morphology Normal (Normal) 11/24/18 12:21 Sodium 136 mmol/L (135-145) 11/13/18 10:00 Potassium 3.4 mmol/L (3.5-5.0) L 11/13/18 10:00 Chloride 107 mmol/L (101-111) 11/13/18 10:00 Carbon Dioxide 19 mmol/L (22-32) L 11/13/18 10:00 Anion Gap 10 mmol/L (2-11) 11/13/18 10:00 BUN 5 mg/dL (6-24) L 11/13/18 10:00 Creatinine 0.52 mg/dL (0.51-0.95) 11/13/18 10:00 Est GFR ( Amer) 163.3 (>60) 11/13/18 10:00 Est GFR (Non-Af Amer) 135.0 (>60) 11/13/18 10:00 BUN/Creatinine Ratio 9.6 (8-20) 11/13/18 10:00 Glucose 94 mg/dL (70-100) 11/13/18 10:00 POC Glucose (mg/dL) 75 mg/dL (70-100) 12/08/18 10:35 Calcium 9.4 mg/dL (8.6-10.3) 11/13/18 10:00 Total Bilirubin 0.30 mg/dL (0.2-1.0) 11/13/18 10:00 AST 14 U/L (13-39) 11/13/18 10:00 ALT 12 U/L (7-52) 11/13/18 10:00 Alkaline Phosphatase 99 U/L (34-104) 11/13/18 10:00 Total Protein 6.8 g/dL (6.4-8.9) 11/13/18 10:00 Albumin 3.6 g/dL (3.2-5.2) 11/13/18 10:00 Globulin 3.2 g/dL (2-4) 11/13/18 10:00 Albumin/Globulin Ratio 1.1 (1-3) 11/13/18 10:00 Urine Color Yellow 11/26/18 18:06 Urine Appearance Cloudy 11/26/18 18:06 Urine pH 6.0 (5-9) 11/26/18 18:06 Ur Specific [place] 1.014 (1.010-1.030) 11/26/18 18:06 Urine Protein Negative (Negative) 11/26/18 18:06 Urine Ketones Trace (Negative) A 11/26/18 18:06 Urine Blood Negative (Negative) 11/26/18 18:06 Urine Nitrate Negative (Negative) 11/26/18 18: Urine Bilirubin Negative (Negative) 11/26/18 18:06 Urine Urobilinogen Negative (Negative) 11/26/18 18:06 Ur Leukocyte Esterase Negative (Negative) 11/26/18 18:06 Urine WBC (Auto) Trace(0-5/hpf) (Absent) 11/13/18 10:00 Urine RBC (Auto) 1+(3-5/hpf) (Absent) A 11/13/18 10:00 Ur Squamous Epith Cells Present (Absent) A 11/13/18 10:00 Urine Bacteria 1+ (Absent) A 11/13/18 10:00 Urine Glucose Negative (Negative) 11/26/18 18:06 Vag Amniotic Fld Detect Positive 11/13/18 10:00 Blood Type B Positive 11/24/18 12:21 Antibody Screen Negative 11/24/18 12:21 Abdomen soft, not tender, gravid with palpable featl movement. NST reactive, no contractions] Assessment: [No s/sx of pre-term labor, or infectious process, reassuring monitoring.] Plan: [ at 33 5/7 weeks EGA, PPROM, prior myomectomy. Continue current care , plan delivery at 34 weeks via section.]
[2018-12-09] MEDS: Famotidine TAB* 20 MG PO SCH ×2 (08:21→20:00)
--- NOTE | 2018-12-09 12:31 | PN ---
Progress Note - Progress Note Date of Service: 12/09/18 Note: S: pt feels well. OOB. Still leaking clear fluid. No bleeding. Good FM. AVSS. FS wnl. FHT reactive Gen: NAD Abd: soft, gravid, NT A: 33.6wks with PPROM, h/o myomectomy. A1GDM - well controlled P: PCS tomorrow.
[2018-12-09 12:40] LABS: Hematocrit 37 % (33-41); Hemoglobin 12.8 g/dL (12.0-16.0); Mean Corpuscular HGB Conc 35 g/dL (31-36); Mean Corpuscular Hemoglobin 33 pg (27-31); Mean Corpuscular Volume 95 fL (80-97); Mean Platelet Volume 8.5 fL (7.4-10.4); Platelet Count 309 10^3/uL (150-450); Red Blood Count 3.85 10^6 /uL (3.70-4.87); Red Cell Distribution Width 13 % (10.5-15); White Blood Count 9.6 10^3/uL (3.5-10.8)
[2018-12-09 14:21] LABS: Immature Granulocytes 3 % (0-9); Lymphocytes % 13 %; Monocytes % 4 %; Neutrophil % 79 %
[2018-12-09 14:22] LABS: ABS Neutrophils 7.9 10^3/ul (1.5-7.7)
[2018-12-09 14:23] LABS: ABS Eosinophils 0.1 10^3/ul (0-0.6)
[2018-12-10] MEDS ORDERED: Lactated Ringers 1000 ML Bag* 1,000 ML IV SCH ×3 (06:30→10:00)
[2018-12-10] MEDS ORDERED: Buffered Lidocaine 1% SYRIN* 1 ML/SYRINGE INTRADERM ONE (06:57)
[2018-12-10] MEDS ORDERED: Sodium Citrate/Citric Acid* 15 ML UDC PO ONE (06:57)
[2018-12-10] MEDS ORDERED: Famotidine IV* 10 MG/ML 2 ML (20 mg) IV ONE (06:57)
[2018-12-10] MEDS ORDERED: ceFOXitin 2 GM IVPREMIX* 2 GM/50 ML BAG IVPB ONE (07:00)
[2018-12-10] MEDS ORDERED: Morphine PF AMP (0.5MG/ML)* 5 MG/10 ML AMP ONE (07:15)
[2018-12-10] MEDS ORDERED: fentaNYL* 50 MCG/ML 2 ML VIAL (100 MCG VIAL) ONE ×2 (07:15→08:38)
[2018-12-10] MEDS ORDERED: Sodium Citrate/Citric Acid* 15 ML UDC ONE ×2 (07:22→07:24)
[2018-12-10] MEDS ORDERED: Famotidine IV* 10 MG/ML 2 ML (20 mg) ONE (07:23)
[2018-12-10] MEDS ORDERED: Ondansetron INJ* 2 MG/ML VIAL ONE (07:24)
[2018-12-10] MEDS ORDERED: Phenylephrine 10 MG/ML VIAL* 1 ML VIAL ONE (07:32)
[2018-12-10] MEDS ORDERED: OXYTOCIN* 10 UNITS/ML 1 ML VIAL ONE (08:12)
[2018-12-10] MEDS ORDERED: nitroGLYCERIN DRIP* 25,000 MCG/250 ML BTL ONE (08:33)
[2018-12-10] MEDS ORDERED: Metoclopramide IV* 5 MG/ML 2 ML VIAL ONE (08:42)
[2018-12-10] MEDS ORDERED: Midazolam* 1 MG/ML 2 ML VIAL (2 MG) ONE ×2 (08:42→08:45)
[2018-12-10] MEDS ORDERED: Dibucaine 1% 28.35 GM TUBE PR PRN (09:05)
[2018-12-10] MEDS ORDERED: Zolpidem TAB* 5 MG PO PRN (09:05)
[2018-12-10] MEDS ORDERED: Glycerin ADULT SUPP PR PRN (09:05)
[2018-12-10] MEDS ORDERED: oxyCODONE/Acetamin 5/325 MG* TAB PO PRN ×2 (09:05)
[2018-12-10] MEDS ORDERED: Ibuprofen TAB* 600 MG PO PRN (09:05)
[2018-12-10] MEDS ORDERED: Witch Hazel PAD* JAR TOPICAL PRN (09:05)
[2018-12-10] MEDS ORDERED: Acetaminophen TAB* 325 MG PO PRN (09:05)
[2018-12-10] MEDS ORDERED: Ondansetron INJ* 2 MG/ML VIAL IV PRN ×2 (09:39→09:43)
[2018-12-10] MEDS ORDERED: Metoclopramide IV* 5 MG/ML 2 ML VIAL IV PRN (09:39)
[2018-12-10] MEDS ORDERED: oxyCODONE TAB* 5 MG TAB PO PRN ×2 (09:39→18:17)
[2018-12-10] MEDS ORDERED: Naloxone* 0.4 MG/ML 1 ML VIAL IV PRN ×2 (09:39→09:43)
[2018-12-10] MEDS ORDERED: fentaNYL* 50 MCG/ML 2 ML VIAL (100 MCG VIAL) IV PRN (09:43)
[2018-12-10] MEDS ORDERED: Ketorolac INJ* 30 MG/ML 1 ML VIAL ONE (09:45)
[2018-12-10] MEDS ORDERED: Acetaminophen TAB* 325 MG ONE ×2 (09:47→09:52)
[2018-12-10] MEDS: Ketorolac INJ* 30 MG/ML 1 ML VIAL IV PRN ×3 (09:55→21:55)
[2018-12-10] MEDS: Acetaminophen TAB* 325 MG PO PRN ×3 (09:59→21:54)
[2018-12-10] MEDS: Famotidine TAB* 20 MG PO SCH ×2 (11:12→22:07)
[2018-12-10] MEDS ORDERED: Lidocaine 1% INJ* 10 MG/ML 30 ML SDV ONE (11:20)
[2018-12-10] MEDS: Simethicone TAB* 80 MG TAB.CHEW PO SCH ×3 (14:01→22:01)
[2018-12-10] MEDS: Docusate CAP* 100 MG PO SCH ×2 (14:01→22:08)
[2018-12-10] MEDS: oxyCODONE TAB* 5 MG TAB PO PRN ×2 (19:52→23:58)
[2018-12-11] MEDS ORDERED: Acetaminophen TAB* 325 MG PO PRN (02:00)
[2018-12-11] MEDS: oxyCODONE/Acetamin 5/325 MG* TAB PO PRN ×6 (03:42→21:31)
[2018-12-11] MEDS: Ibuprofen TAB* 600 MG PO PRN ×4 (03:42→22:48)
[2018-12-11 07:14] LABS: ABS Basophils 0 10^3/ul (0-0.2); ABS Eosinophils 0 10^3/ul (0-0.6); ABS Lymphocytes 1.2 10^3/ul (1.0-4.8); ABS Monocytes 0.8 10^3/ul (0-0.8); ABS Neutrophils 10.4 10^3/ul (1.5-7.7); ABS Nucleated RBC 0 10^3/ul; Eosinophil % 0.2 %; Hematocrit 29 % (33-41); Hemoglobin 9.7 g/dL (12.0-16.0); Lymphocyte % 9.3 %; Mean Corpuscular HGB Conc 34 g/dL (31-36); Mean Corpuscular Hemoglobin 32 pg (27-31); Mean Corpuscular Volume 95 fL (80-97); Mean Platelet Volume 8.2 fL (7.4-10.4); Nucleated Red Blood Cells % 0; Platelet Count 251 10^3/uL (150-450); Red Blood Count 3.01 10^6 /uL (3.70-4.87); Red Cell Distribution Width 13 % (10.5-15); White Blood Count 12.4 10^3/uL (3.5-10.8)
[2018-12-11] MEDS: Simethicone TAB* 80 MG TAB.CHEW PO SCH ×4 (09:02→20:30)
[2018-12-11] MEDS: Ferrous Gluconate TAB* 324 MG TAB PO SCH ×2 (09:02→20:29)
[2018-12-11] MEDS: Docusate CAP* 100 MG PO SCH ×3 (09:02→20:29)
[2018-12-11] MEDS: Famotidine TAB* 20 MG PO SCH ×2 (10:04→20:29)
--- NOTE | 2018-12-11 10:40 | OP ---
AMENDED REPORT TO CORRECT DATE OF OPERATION - ESIGNED BEFORE ADJUSTMENT CC: Dr. Ruby Pedersen, [facility] * DATE OF OPERATION: 12/10/18 - ROOM #116 DATE OF : 83 SURGEON: Flakito Cortez MD. RUBBER MOULDING MACHINE OPERATOR: Dr. Pedersen and Apryl Magallon, Certified Nurse [employer] Tuber Machine Operator. ANESTHESIA: Spinal. PRE-OP DIAGNOSES: at 34 weeks with premature rupture of membranes at 31 weeks gestational age with a prior myomectomy. POST-OP DIAGNOSES: at 34 weeks with premature rupture of membranes at 31 weeks gestational age with a prior myomectomy with a transverse lie. OPERATIVE PROCEDURE: Primary section with a vertical extension of low - transverse incision and vacuum assistance of the delivery of the head. ESTIMATED BLOOD LOSS: 600 cc. SPECIMEN SENT TO PATHOLOGY: Cord blood, cord gas, and placenta. FLUIDS: The patient received 2400 cc of IV crystalloid fluid. URINE OUTPUT: Clear. FINDINGS: Delivery of a male with Apgars of 1 and 8 which was in a transverse lie with anterior spine. The head was at he maternal right side and the left arm and left leg and nuchal cord prolapsed through the uterine incision. The placenta was grossly intact. The uterus was noted to be an oblong shape with a prominent left cornua. The adnexa were within normal limits bilaterally. There was normal bowel and bladder. Complication was with delivery of the fetus. DESCRIPTION OF PROCEDURE: The patient was taken to the operating room where she was identified. She was placed on the operating table where a spinal anesthetic was obtained without difficulty. She was then placed in the supine position with a leftward tilt, prepped and draped in normal sterile fashion. A Pfannenstiel skin incision was made with a knife and carried through to underlying layer of fascia. The fascia was nicked in the midline and extended laterally with curved Sarah scissors. The fascia was then grasped superiorly and inferiorly with Kamini clamps and dissected off sharply from the rectus muscle. The rectus muscle was in the midline bluntly. The peritoneum was identified, grasped with pickups, and entered sharply with Metzenbaum scissors and extended superiorly and inferiorly sharply. A bladder blade was inserted into the patient's abdomen and bladder flap was created using Metzenbaum scissors, over which a bladder blade was then reinserted. A low-transverse incision was made with a knife, and through the incision, the arm and leg as well as the nuchal cord prolapsed. Proceeded to push the umbilicus and limbs into the uterus. The fetus was noted to be in a transverse lie with the head at the maternal side. The spine was anterior and right and left arms and legs were at the fundus of the uterus. I made several attempts to try to convert position to a breech position by trying to grab the feet of the infant. However, I was unable to do so due to the fact that the uterus was ezekiel and I was unable to reach the limb. I then attempted to convert the position to a cephalic presentation. I was successful in being able to bring the head onto the lower uterine segment. I applied vacuum and was able to deliver the head. The rest of the 's body was then delivered. The cord was clamped and cut and the infant was handed off to waiting advanced quality engineer. Cord blood and cord gases were sent. Please note that after my initial attempt to convert the fetus into a breech presentation, I extended the low-transverse uterine incision into a T- incision by making an incision vertically in the middle of the transverse incision. The placenta was removed manually. The uterus was then exteriorized , cleared of all clot and debris using moist laparotomy sponges. The vertical extension of the uterine incision was closed in 3 layers using Polysorb sutures in interrupted stitches. Then the lower uterine incision was closed using 0 Polysorb suture in a running locked fashion and a second imbricating layers of 0 Polysorb suture was used to close the uterine incision with good hemostasis noted. The uterus was then returned to the patient's abdomen. The gutters were then cleared of all clots and debris using moist laparotomy sponges. A second look at the uterine incision revealed a hemostatic incision. The peritoneum was then closed using 0 Polysorb sutures in a running fashion. The fascia was closed using 0 Polysorb suture in a running fashion, and the skin was closed with 4-0 Monocryl subcuticular stitch. The patient tolerated the procedure well. Sponge, lap, needle counts were correct x2. The patient was then transferred to recovery room area in stable condition. [id number]/[facility] #: [id number] [facility]
[2018-12-12] MEDS: oxyCODONE/Acetamin 5/325 MG* TAB PO PRN ×6 (01:31→22:23)
[2018-12-12] MEDS: Ibuprofen TAB* 600 MG PO PRN ×3 (04:42→20:05)
[2018-12-12] MEDS: Simethicone TAB* 80 MG TAB.CHEW PO SCH ×4 (08:44→20:05)
[2018-12-12] MEDS: Docusate CAP* 100 MG PO SCH ×3 (08:44→20:05)
[2018-12-12] MEDS: Famotidine TAB* 20 MG PO SCH (08:44)
[2018-12-12] MEDS: Ferrous Gluconate TAB* 324 MG TAB PO SCH ×2 (08:45→20:05)
[2018-12-13] MEDS ORDERED: Tetan/Diph/Pertus SYR(Tdap)* 0.5 ML SYR(BOOSTRIX) use SYR IM ONE (00:18)
[2018-12-13] MEDS: Ibuprofen TAB* 600 MG PO PRN ×2 (02:33→08:58)
[2018-12-13] MEDS: oxyCODONE/Acetamin 5/325 MG* TAB PO PRN ×3 (02:33→10:26)
[2018-12-13 08:00] VITALS: BP 133/80
[2018-12-13] MEDS: Simethicone TAB* 80 MG TAB.CHEW PO SCH (08:58)
[2018-12-13] MEDS: Docusate CAP* 100 MG PO SCH (08:58)
[2018-12-13] MEDS: Ferrous Gluconate TAB* 324 MG TAB PO SCH (08:58)
[2018-12-13] MEDS: Famotidine TAB* 20 MG PO SCH (09:34)
== END 2018-12-13 11:00 | disposition home or self-care (01) | DRG 540 ==
LOC: MCHOBOUT 09:27 → MCHOB 09:48 → UNDODISIN 12-13 11:00
PROVIDERS: ADMIT Obstetrics & Gynecology; ATTEND Obstetrics & Gynecology
PROC: 4A1HXCZ Monitoring of Products of Conception, Cardiac Rate, External Approach (ICD-10-PCS; 2018-11-13)
PROC: 10907ZC Drainage of Amniotic Fluid, Therapeutic from Products of Conception, Via Natural or Artificial Opening (ICD-10-PCS; 2018-11-22)
PROC: 10D00Z1 Extraction of Products of Conception, Low, Open Approach (ICD-10-PCS; principal; 2018-12-10 07:23)
DX: O34.29 Maternal care due to uterine scar from other previous surgery (principal); O60.14X0 Preterm labor third trimester with preterm delivery third trimester, not applicable or unspecified; O75.89 Other specified complications of labor and delivery; O24.420 Gestational diabetes mellitus in childbirth, diet controlled; O69.81X0 Labor and delivery complicated by cord around neck, without compression, not applicable or unspecified; O42.113 Preterm premature rupture of membranes, onset of labor more than 24 hours following rupture, third trimester; O32.2XX0 Maternal care for transverse and oblique lie, not applicable or unspecified; Z3A.34 34 weeks gestation of pregnancy; Z37.0 Single live birth; O90.81 Anemia of the puerperium; O69.0XX0 Labor and delivery complicated by prolapse of cord, not applicable or unspecified; Y92.9 Unspecified place or not applicable; Z91.040 Latex allergy status
CPT/HCPCS: 36415; 76805; 76815; 76819; 80053; 81003; 81015; 84112; 85025; 85027; 86850; 86900; 86901; 87070; 87086; 88307; A9270-GY; J0290; J0694; J0702; J1885; J2250; J2405; J2590; J2765; J3010